=== PATIENT | male | born 1955 | race Caucasian/White ===

== ENCOUNTER → 2016-04-10 | Outpatient (CLI) | payer BC, OTHER ==
[~2016-04-10] MED LIST: ALLEGRA ALLERG180 MG PO; ALTACE10 M1 PO; AMBIEN CR12.5 MG PO; AMLODIPINE BESY10 MG PO; AMOXICILLIN 50500 M1; AMOXIL PO; ASA5UEC PO; ASPIRIN EC325 M1 PO; ASPIRIN325 PO; AUGMENTIN 875875 MG PO; CARVEDILOL25 MG PO; CENTRUM SILVER1 EAC2 PO; CITRATE OF MAG296 ML PO; CLAV PO; CLOTRIMAZOLE-BE15 GM TP; COLACE100 MG PO; COREG6.25 MG PO; COZAAR 50 MG TA50 M2 PO; DEXAMETHASONE 44 M1 PO; DILAUDID 2 MG TA2 MG PO; DIPHENHIST50 MG PO; DUONEB 2.5-0.5 M3 ML INH; FENTANYL PA25 MCG/HR TRANSDERM; GUAIFENESIN/COD10 M1 PO; HUMALOG100 UNIT/1; HUMALOG100 UNIT/2; HYDROCHLOROTH12.5 M1 PO; HYDROCHLOROTH12.5 MG PO; HYDROCODONE-CH473 M1 PO; HYDROCODONE-CH473 ML PO; HYDROCODONE-CHLO5 ML PO; KEFLEX500 MG PO; LEVAQUIN 500 M500 M2 PO; LYRICA 75 MG CA75 MG PO; MIRALAX17 GM PO; MUCINEX600 MG PO; NIASPAN 500 MG500 M1 PO; OMEPRAZOLE 20 M20 M1 PO; OXYCODONE HCL15 MG PO; PACERONE 200 M200 M1 PO; PEMETREXED IV; PREDNISONE 10 M10 MG PO; REGLAN 5 MG TAB5 MG PO; REMERON15 MG PO; RESTORIL15 MG PO; SIMVASTATIN20 MG PO; SSD CREAM 1% 5050 GM TOP; TESSALON PERLE100 M1 PO; TESSALON PERLE100 MG PO; TOPROL XL25 MG PO; VITAMIN C1000 MG PO; ZETIA10 MG PO; ZOCOR 20 MG TAB20 M1 PO; ZOLPIDEM TART12.5 MG PO
== END ==
LOC: RAD 13:16
DX: C34.90 Malignant neoplasm of unspecified part of unspecified bronchus or lung (principal); J90 Pleural effusion, not elsewhere classified

== ENCOUNTER 2016-04-19 06:55 | Inpatient (IN) | payer BC, OTHER ==
[~2016-04-19] VITALS: Ht 185.4 cm; Wt 0.5 kg
--- NOTE | ~2016-04-19 | HC ---
[facility] [place] [address] CONSULTATION Name: LINDAASHLEYMELAINE Room #: 426-P [facility] IN M.R.#: [id number] Admission: 04/19/16 Attend Phys: Ezekiel Mobley MD Discharge: Date of : 53 Report #: [id number] THIS REPORT FOR: //name// CC: Ishaan Mobley HISTORY OF PRESENT ILLNESS: The patient is a 61-year-old male with a history of metastatic lung cancer who has had anemia as well as a history of GI bleed. He underwent workup in February, which included an EGD and colonoscopy by my partner Dr. Raza, both of which were negative. Biopsies at that time were negative for celiac sprue as well. He then underwent an M2 capsule endoscopy. This was read by Dr. Banda and she noted a jejunal mass that was ulcerated with ulcerations proximal to the mass as well. Etiology was uncertain. She attempted a small bowel enteroscopy to reach the mass, but was unable to reach that area. This was performed on 03/13/2016. Therefore, the plan was to have the patient undergo a double balloon enteroscopy, which is actually scheduled for April 29 at [facility] [place]. The patient was admitted because he has recurrent nausea and vomiting. He states this has been ongoing for the last week on a daily basis. It almost always occurs at night, nausea is not a big component. He states he begins coughing significantly, which leads to vomiting. His last dose of chemotherapy was a week ago. His last blood transfusion was yesterday in which he had 2 units of packed cells. His hemoglobin at this time is 11.0; however, his white blood cell count is 0.8. It is unclear if he has received stimulating factor for his leukopenia. He denies any fevers or chills. He had a bowel movement yesterday that was small. He denies any flatus today. He has been feeling weak in general. No chest pain or shortness of breath, no significant early satiety, but his appetite has been fairly poor. PAST MEDICAL HISTORY: Metastatic lung cancer, history of jejunal mass, anemia, GI bleed. Diabetes, history of coronary artery disease, hypertension, peripheral vascular disease, atrial fibrillation, he has had a previous CABG with stent placement in 2003. FAMILY HISTORY: Negative for colon cancer. SOCIAL HISTORY: He denies any tobacco or alcohol at this time. PHYSICAL EXAMINATION: VITAL SIGNS: Temperature is 97.8, pulse 65, blood pressure 99/49, respiratory rate is 18. GENERAL: He is alert and oriented x 3 in no acute distress. HEENT: Sclerae nonicteric. Oropharynx clear. NECK: Supple. CARDIOVASCULAR: Regular rate. CHEST: Faint crackles on the right, slight decreased breath sounds. [facility] [address] [place] [address] CONSULTATION Name: MELANIE STONE Room #: 426-P [facility] IN [facility].#: [id number] Admission: 04/19/16 Attend Phys: Ezekiel Mobley MD Discharge: Date of : 53 Report #: [id number] ABDOMEN: Soft. He is nontender, nondistended, normoactive bowel sounds. EXTREMITIES: No cyanosis, clubbing or edema. LABORATORY DATA: Sodium 138, potassium 3.5, chloride 98, bicarbonate 29, BUN 30, creatinine 1.5, glucose 279, AST 31, lipase 27, total bilirubin 0.7, calcium 8.4, alkaline phosphatase 208, ALT is 22, albumin 1.9. WBC is 0.8, hemoglobin 11.0, platelet count is 150. KUB performed today bowel gas pattern nonspecific, no evidence of mechanical obstruction, constipation noted. ASSESSMENT AND PLAN: 1. Recurrent nausea and vomiting, this typically occurs only at night. The patient has been undergoing chemotherapy. However, there has been no pattern with nausea and vomiting with previous chemotherapy. He has a known mass within the jejunum, although this may cause a partial blockage if it is enlarged since last hospitalization he did have a small bowel follow through that was in February that was essentially normal and he is not having persistent symptoms during the day, suggesting a small-bowel obstruction as well as his KUB showing no dilated loops of small bowel. The patient does have a history of diabetes; need to consider the possibility of delayed gastric emptying. We discussed starting Zofran on a scheduled basis every evening as the patient has been only having vomiting at night. If this is not helpful, then would consider a trial of Reglan and may need to consider either repeat CT or small bowel follow through in the near future. 2. Significant leukopenia likely secondary to chemotherapy, would need to continue to monitor closely. 3. History of significant anemia with known ulceration of small bowel mass, which could be contributing as well as other fractures, hemoglobin has been monitored closely lately, his last transfusion was yesterday. Thank you for allowing me to participate in his care. <ELECTRONICALLY SIGNED> By: Hayden Crum MD 04/20/16 1107 1515 1617 Hayden Crum MD /nt
--- NOTE | ~2016-04-19 | D ---
[facility] [place] [address] DISCHARGE SUMMARY Name: MELANIE STONE Room #: 426-P [facility] IN M.R.#: [id number] Admission: 04/19/16 Attend Phys: Ezekiel Mobley MD Discharge: 04/24/16 Date of : 53 Report #: [id number] THIS REPORT FOR: //name// CC: Ezekiel Mobley DATE OF SERVICE: 04/24/2016 DISCHARGE DIAGNOSES: 1. Nausea and vomiting secondary to gastroparesis, multifactorial including diabetic gastroenteropathy and the administration of narcotic agents for cough. 2. Constipation. 3. Severe protein calorie malnutrition. 4. New 5 cm mass seen in the liver on CT scan consistent with metastatic disease. 5. Old-traumatic fractures of the left acetabulum that are unchanged. 6. Stage 4 nonsmall cell lung cancer on maintenance Alimta chemotherapy. 7. 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 8. Thrombocytopenia due to chemotherapy. 9. Type 1 diabetes mellitus, well managed by the patient himself with an insulin pump - blood sugars have dropped as the corticosteroids have been cut back in dose. 10. Chronic constipation from narcotics and his diabetic enteropathy. 11. Small scrotal ulcer that has improved since last seen in the office. SUMMARY OF HISTORY AND PHYSICAL: The patient came to the emergency room because of persistent nausea and vomiting that had gone on in the night time for the previous week or more. Because his symptoms were not responding to oral medication, hospital admission with intravenous fluids, intravenous medications, and GI consultation as well as consultation with his oncologist for his stage 4 lung cancer were all indications for in-hospital admission. SUMMARY OF HOSPITAL COURSE: He was given metoclopramide 5 mg before meals and at bedtime along with Zofran at bedtime and his nausea and vomiting resolved. He was also given lactulose, which was effective in treating his constipation. MiraLax was administered as well. He was given pantoprazole twice daily also. His hemoglobin remained stable suggesting that he was not bleeding acutely from known tumor in his proximal jejunum. His platelets were low and with stable hemoglobin, had suggested that his current platelets were highly functional. Dr. Petit, his oncologist, ordered platelet transfusion prior to him being discharged. LABORATORY DATA: His creatinine on admission was 1.5 with an EGFR of 47, which is at his current baseline. He managed his blood sugars with his insulin pump while in the hospital and they varied between 31 when he came through the emergency room to a maximum of 406 in response to corticosteroids, but were between 50 and 127 his last 3 hospital days. Alkaline phosphatase was 208 and [facility] [address] [place] [address] DISCHARGE SUMMARY Name: MELANIE STONE Room #: 426-P [facility] IN .R.#: [id number] Admission: 04/19/16 Attend Phys: Ezekiel Mobley MD Discharge: 04/24/16 Date of : 53 Report #: [id number] had been in this range recently. Albumin was in the severe malnutrition range at 1.9. White blood cells on admission were low at 0.8, hemoglobin was 11.0 and stabilized at 9.3 after rehydration; platelets were 150,000 on admission but dropped to 16,000 on the day of discharge, and he was transfused with platelets before being discharged. Urinalysis was negative. Blood cultures were negative. Video swallow was unremarkable. CT scan of the chest, abdomen and pelvis showed likely post-traumatic healed fractures in the posterior left acetabulum and were unchanged from 11/2015. An old healed right inferior pubic ramus fracture. Thickening in the mid portion of small bowel with possible inflammation/transient intussusception was not present on a previous study. A new 5.5 cm mass in the right lobe of the liver with irregular margins consistent with hepatic metastasis; moderate right pleural effusion, unchanged from 12/17/2015. Bronchial thickening and atelectasis in the right upper, right middle and right lower lobes, unchanged from 12/17/2015. Asymmetric thickening of the bladder wall was felt to be interstitial inflammation or infection, possibly invasive tumor or post-therapeutic. PLAN: The patient currently has an appointment for double balloon enteroscopy at [facility] on April 29 for biopsy and treatment of the proximal jejunal mass seen on capsule endoscopy several weeks ago. He is discharged on metoclopramide 5 mg before meals and at bedtime, Zofran as needed, and twice daily proton pump inhibitors. His other medications are listed on his discharge instruction sheet. He will be seen in my office in 2-4 weeks and followed closely by his oncologist, Dr. Ishaan Petit. <ELECTRONICALLY SIGNED> By: Ezekiel Mobley MD 06/09/16 0826 2144 0238 Ezekiel Mobley MD /nt
--- NOTE | ~2016-04-19 | S ---
[facility] [place] [address] SURGICAL PATH RPT PROCEDURE Name: MELANIE STONE Room #: 426-P ADM IN M.R.#: [id number] Admission: 04/19/16 Date of : 53 Discharge: Report #: [id number] Path Case #: [id number] PATHOLOGY REPORT COLLECTION DATE: 04/23/2016 RECEIVED DATE: 04/23/2016 SUBMITTING PHYS: Dr. Ishaan Petit OTHER PHYS: Dr. Ezekiel Harden SPECIMEN(S) RECEIVED: A.Peripheral smear * * * * * * * * * * * * FINAL DIAGNOSIS: Peripheral blood smear: - Moderate normocytic anemia, lymphopenia / borderline mild neutrophilia and severe thrombocytopenia. (see comment) COMMENT: Overall the peripheral blood has moderate normocytic anemia, lymphopenia (with a corresponding borderline mild neutrophilia) and severe thrombocytopenia. The WBC count is within the normal reference range. The etiology of the findings is unclear based entirely on slide review. Hypersegmented neutrophils are also noted. It is likely related to the patient's underlying medical condition. Potential causes of normocytic anemia include anemia of chronic disease, treated and/or compensated vitamin and mineral deficiencies, acute blood loss and dilutional. Potential causes of thrombocytopenia include immune and non-immune platelet destruction, drug and/or toxic exposures, dilutional and primary bone marrow disorders. Correlation with clinical history and additional laboratory data is recommended. The case is discussed with Dr. Ishaan Petit on 04/23/2016 at approximately 10 AM. (CLW:all; d/t: 04/23/2016) PATHOLOGIST: Elena Weber M.D. REPORT ELECTRONICALLY SIGNED BY: Elena Weber M.D. DATE/TIME: 04/23/2016 13:15 * * * * * * * * * * * * MICROSCOPIC DESCRIPTION: CBC Data (04/23/16): WBC 9K/uL, RBC 2.99, Hgb 9.2 g/dL, Hct 27.8%, MCV 92.9 fl, MCH 30.7 pg, MCHC 33.1 g/dL, RDW 16.1%, and platelet count 25 K/uL. Manual [facility] [place] [address] SURGICAL PATH RPT PROCEDURE Name: MELANIE STONE Room #: 426-P ADM IN .R.#: [id number] Admission: 04/19/16 Date of : 53 Discharge: Report #: [id number] Path Case #: [id number] white blood cell differential: segs 93%, bands 2%, lymphs 2%, monos 3%. Peripheral Blood Smear: Cytomorphological examination of the Mathew's stained peripheral blood smear confirms the provided data. Red blood cells show moderate normocytic anemia with mild anisocytosis. No significant poikilocytosis is identified. No schistocytes or microspherocytes are seen. White blood cells are predominantly segmented neutrophils and are without significant dyspoiesis or significant left shift. Occasional hypersegmented neutrophils are noted. Lymphocytes are predominantly small, round and mature appearing with condensed chromatin and scant cytoplasm. On scanning, no markedly atypical lymphoid cells are seen. Monocytes are mature. Platelets are markedly decreased in number and mainly normal in morphology with rare larger platelets noted. CLINICAL HISTORY: 61-year-old man with anemia and thrombocytopenia. Currently on chemotherapy. Morphologic review of the peripheral blood smear is requested by the patient's physician. INITIAL CPT CODE(S): A; [place] Professional services performed by [employer] at [facility] [address], [place] [address] Technical services performed by [employer] at [address] [place] [address], [address], [place] [address]. [employer] [facility] [place] [address] PHONE: [phone] DIRECTOR: Malachi Foley M.D. * * * END OF REPORT * * *
--- NOTE | ~2016-04-19 | HC ---
[place] [address] CONSULTATION Name: LINDAASHLEYMELANIE Room #: 426-P ADM IN M.R.#: [id number] Admission: 04/19/16 Attend Phys: Ezekiel Mobley MD Discharge: Date of : 53 Report #: [id number] THIS REPORT FOR: //name// CC: Mack Mobley MD DATE OF SERVICE: 04/21/2016 REASON FOR CONSULTATION: History of metastatic lung cancer. HISTORY OF PRESENT ILLNESS: The patient is a very pleasant 61-year-old gentleman with a history of adenocarcinoma from the lung from 10/27/2014. This was a poorly differentiated carcinoma that was EGFR, ALK and ROS-1 negative. The patient completed radiation therapy to the pelvis in November 2014. The patient was recently admitted because of fatigue, falling at home and also vomiting. The patient gives a history that he has a chronic cough which he has indeed had in the clinic. He since coughs at night and was aware that there were some stomach contents in his throat that he throws up. He does not really have nausea, just has emesis. There is also a question about whether he may be aspirating. He also had some mild renal insufficiency when he came in. He has been evaluated for this by GI. They are planning something about small bowel follow-through or other GI studies. Note that as part of his workup for anemia earlier, he even found to have some type of abnormality in the small intestine and is planned for a double enteroscopy of the small bowel at [facility] next week. The patient denies fevers or chills; does have the cough, has been working full-time. He had sort of a trip coming down the stairs at home prior to admission. No new arm or leg swelling. Bowels have been moving okay, though they are sometimes fast and sometimes slow. He had been also having trouble with anemia lately and recently begun on darbepoetin. PAST MEDICAL HISTORY: Notable for the [id number] lung cancer diagnosed from approximately October 2014. In the past, had been on radiation therapy, then was on carbo and Gemzar and then has been on more of a maintenance Alimta since May 2015. Note that he could have therapies with PD-1 inhibitors. His most recent chemo was cycle 13 on April 10. He also has anemia, had had iron deficiency and had received INFeD within the last 6-8 weeks. He was found to have a small bowel bleeding and was told to have a procedure to stop this. He also began on darbepoetin 300 mcg q. 21 days on approximately 03/27/2016. He also had a history of left hip pain. He had been on radiation therapy for that in the past. Diabetes mellitus type 2. He has been on insulin and oral agents. Coronary artery disease. He has a history of bypass in the past. Also has a history of hypertension. [address] [address] CONSULTATION Name: MELANIE STONE Room #: 426-P [facility] IN M.R.#: [id number] Admission: 04/19/16 Attend Phys: Ezekiel Mobley MD Discharge: Date of : 53 Report #: [id number] SOCIAL HISTORY: He is . He still works for a [employer] company in a large [employer]. He smoked in the past. No recent alcohol or smoking history. Has a very supportive family. MEDICATIONS: At this time in the hospital currently include metoclopramide 5 mg a.c. and at bedtime, pregabalin 75 mg daily, multivitamins with minerals daily, vitamin C 1000 mg daily, amiodarone 200 mg daily, enteric-coated aspirin 325 mg daily, Zofran p.r.n., methylprednisolone 40 mg IV q.i.d., sliding scale insulin, pantoprazole 20 b.i.d., carvedilol 6.25 b.i.d., MiraLax 17 g daily, hydrocodone cough syrup 2.5 mL b.i.d., ipratropium and albuterol respiratory therapy q.i.d., silver sulfadiazine to skin tear, cephalexin 500 mg q. 6 hours for recent cellulitis, benzonatate 100 mg q. 6 hours, bisacodyl p.r.n. and zolpidem 5 mg at bedtime p.r.n. LABORATORY DATA: Here includes a creatinine on admission of 1.5. Liver functions recently include a total bilirubin of 0.7, AST 31, alkaline phosphatase 208. Albumin 1.9. Calcium has been 8.4. Coags done in January were unremarkable. Recent white count had been low, was up to 1.2 today. Hemoglobin 11.0 on admission, 9.2 recently; note that he had a recent transfusion. Platelets 73; back in February, had been 541. PHYSICAL EXAMINATION: GENERAL: The patient appears his stated age. VITAL SIGNS: Recent height is 6 feet 1 inches or 185.4 cm, 181 pounds or 82 kg. Blood pressure is 113/50, O2 sat 96, respirations 16, pulse 68 and temperature 97.9. NEUROLOGIC: The patient is alert and moving all extremities. He does have some slight facial flushing and puffiness. LUNGS: Have some soft rhonchi in the lower bases, a little bit more on the left. HEART: Regular rate. ABDOMEN: Slightly obese. No masses, nontender. EXTREMITIES: Without clubbing or cyanosis. There is some trace edema. ASSESSMENT AND PLAN: 1. Mpb-[id number]-[id number] lung cancer, recently on Alimta ____ order one and get one sent over ____ from for comparison. 2. Anemia status post recent INFeD, now on darbepoetin. Also, has possibly small bowel gastrointestinal bleed. Awaiting small bowel double enteroscopy at [facility]. GI following. 3. Nocturnal vomiting and also cough, studies per GI. No trial of steroids to help decrease mucus production. Also continue other cough suppressants. 4. Recent neutropenia and thrombocytopenia, maybe be viral mediated. We will watch his counts; had not been that low as an outpatient. 5. Coronary artery disease and status post coronary artery bypass graft in the past. No recent cardiac issues. [address] [place] [address] CONSULTATION Name: MELANIE STONE Room #: 426-P [facility] IN [facility]#: [id number] Admission: 04/19/16 Attend Phys: Ezekiel Mobley MD Discharge: Date of : 53 Report #: [id number] 6. Hypertension. Medications as needed. 7. Type 2 diabetes. Monitoring and meds as needed per others. 8. Vomiting at night. Again, GI evaluation per others. 9. Neuropathy. Continues pregabalin. 10. Recent tachycardia, on amiodarone per cardiology and also carvedilol. We will follow with you. <ELECTRONICALLY SIGNED> By: Ishaan Petit MD 04/22/16 0725 0849 1102 Ishaan Petit MD /nt
--- NOTE | ~2016-04-19 | EKG ---
[place] [address] [facility] [employer] [address] ELECTROCARDIOGRAM REPORT Name: LINDAASHLEYMELANIE Room #: 426-P ADM IN M.R.#: [id number] Admission: 04/19/16 Attend Phys: Ezekiel Mobley MD Discharge: Date of : 53 Report #: [id number] THIS REPORT FOR: //name// [facility] Test Date: 2016-04-22 Test Time: 15:35:25 Pat Name: MELANIE STONE Department: Room: 426 Gender: M Electronics Inspector: Amairani HANSON : 1955 Requested By: Anne Felipe Order Number: [id number] MD: Robert Chiang Measurements Intervals [place] Rate: 71 P: 57 NC: 178 QRS: 25 QRSD: 86 T: 53 QT: 437 QTc: 475 Interpretive Statements Sinus rhythm Ventricular premature complex Poor R wave progression No previous ECGs available for comparison Electronically Signed On 04-23-2016 7:54:09 [employer] by Robert Chiang [email or web address] <ELECTRONICALLY SIGNED> By: Robert Chiang MD, [facility] 04/23/16 0754 1535 1535 Robert Chiang MD, FACC /EPI
--- NOTE | ~2016-04-19 | H ---
[facility] [address] HISTORY AND PHYSICAL Name: MELANIE STONE Richard Room #: 426-P ADM IN M.R.#: [id number] Admission: 04/19/16 Attend Phys: Ezekiel Mobley MD Discharge: Date of : 53 Report #: [id number] THIS REPORT FOR: //name// CC: Hayden Mobley MD DATE OF SERVICE: 04/19/2016 HISTORY OF PRESENT ILLNESS: The patient is a 61-year-old white male who presents to the Emergency Room with complaints of nausea and vomiting. This has been going on at nights for the last week at least. He saw Dr. Mobley at the office in the last couple of days and is also being treated for an epididymitis with Keflex. The patient denies any pain. He says that he is not using any narcotic pain medicines recently. His last bowel movement was on the morning of admission, prior to that it was 2 days before. He reports that his bowel movements were somewhat smaller than usual lately, but with about the same regularity. His appetite has been off a little bit. He had 2 pack blood cell transfusions the day prior to this admission. He has had recurrent anemia problems due to a small intestinal mass that is being worked up right now. Please refer to the ER note with regards to the double balloon procedure. This will be performed at [facility] as an outpatient. The patient was not sure of the name of the distribution collection operator whom he thought will be performing the procedure. He follows up with Dr. Ishaan Petit for his chemotherapy. It is noteworthy that the Emergency Room has already been in contact with Dr. Hayden Crum to see the patient as well. His past medical history includes stage IV nonsmall cell lung cancer for which he is currently on Alimta maintenance chemotherapy. He has previously had radiation and more intensive chemotherapy in the past. Transfusions were as mentioned above. He also has a history of type 1 diabetes mellitus for about 50 years and he managed it with an insulin pump. He has had cellulitis in both lower extremities several years ago. He shattered his pelvis in 1998 in a fall from his home where he was trying to do some work on the roof. He has coronary artery disease and had 3-vessel bypass in 2001 and subsequently a stent in 2003. He does have high blood pressure. CURRENT MEDICATIONS: Include, 1. Hydrocodone chlorpheniramine suspension (narcotic?) a teaspoon every 4 hours as needed for cough. 2. Carvedilol 6.25 mg by mouth twice daily. 3. Amiodarone 200 mg by mouth daily. 4. Hydrochlorothiazide 12.5 mg by mouth daily. 5. Cephalexin 500 mg by mouth 4 times daily. 6. Silver sulfadiazine topically to the affected scrotal area. 7. Vitamin C 1000 mg by mouth daily. [address] [address] HISTORY AND PHYSICAL Name: MELANIE STONE Room #: 426-P [facility] IN ..#: [id number] Admission: 04/19/16 Attend Phys: Ezekiel Mobley MD Discharge: Date of : 53 Report #: [id number] 8. Tessalon Perles 100 mg by mouth every 8 hours p.r.n. cough. 9. Dexamethasone 4 mg by mouth twice daily. 10. Guaifenesin 600 mg p.o. q. 12 hours p.r.n. cough. 11. Multivitamins with minerals. 12. Omeprazole. 13. Lyrica daily. 14. Zolpidem CR at bedtime p.r.n. insomnia. 15. Janice. 16. Benadryl p.r.n. 17. An optional round of levofloxacin 18. Dilaudid p.r.n. 19. Fentanyl patch 25 mcg which the patient denies that he is using at the present time. 20. Aspirin 325 mg by mouth daily. ALLERGIES: He has no known drug allergies. SOCIAL HISTORY: He is and not retired. 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 He smoked in the past. He does not have any extensive history of substance abuse, otherwise. REVIEW OF SYSTEMS: He has generalized malaise. He has a very debilitating cough. He has no chest pain, no shortness of breath, no abdominal pain, although he has noted that an umbilical hernia has developed in the last year with all the coughing. No problems with falls or swelling, but he does have discomfort in the scrotum. He does also tell me that frequently because he has been so sick for the last year, historical details regarding his illnesses or his medications escape him. PHYSICAL EXAMINATION: VITAL SIGNS: In the Emergency Room showed respirations of 20, pulse of 117, temperature of 36.9 degrees Celsius, and blood pressure 132/75. His oxygen saturation 93% on room air on arrival. Self reported weight was 181 pounds on arrival. GENERAL: The patient is a pleasant middle-aged white male who looks somewhat older than his stated age. He has a rather severe cough that punctuates our conversation with paroxysms at least every couple of minutes if not more frequent than that. HEENT: Eyes are slightly sunken, but nonicteric, not injected. Sinuses nontender. Oropharynx is slightly dry and pink. No lesions, no exudates. NECK: Without adenopathy or thyromegaly or mass. LUNGS: Surprisingly clear sounding on exam today. CARDIOVASCULAR: Reveals a distant, but regular rhythm (he has a known history of atrial fibrillation that I neglected to mention above in his past medical history). [facility] [address] [place] [address] HISTORY AND PHYSICAL Name: BERTHAMELANIE Room #: 426-P [facility] IN [facility].#: [id number] Admission: 04/19/16 Attend Phys: Ezekiel Mobley MD Discharge: Date of : 53 Report #: [id number] ABDOMEN: Soft. Ventral umbilical hernia is noted. No tenderness. No visceromegaly, otherwise. Please note that the left side of the pelvic bones are much more prominent than the right side and this likely reflects the prior crush injury. EXTREMITIES: Without cyanosis or clubbing or peripheral edema. Peripheral pulses are easily palpated in all 4 distal extremities. MENTAL STATUS EXAM: The patient is alert. He is oriented to person, place and time. There are no hallucinations or delusions. His short term memory is better than he thinks. His long-term memory appears pretty good. In providing history for his current illness, his 2 sons were present and any information they were unable to provide, they were able to text their mother at home to get the rest of the story from her. I believe she was up all night and stayed home to get some rest after the patient was admitted. The patient was noted to have a glucose on arrival of 31. This was addressed and came up subsequently on serial Accu-Cheks. LABORATORY DATA: CBC shows a white count of 0.8 with a differential of 54% segs, 24% lymphs, 18% monocytes, 4% eosinophils and the absolute neutrophil count is . The patient also shows 2+ anisocytosis of the red cells with a hemoglobin of 11, hematocrit of 33.2, MCV of 91.8, RDW of 15.8 (status post recent transfusion of 2 units packed red blood cells) and his platelet count was 150,000. The comprehensive metabolic panel showed a sodium of 138, potassium of 3.5, chloride of 98, bicarbonate of 29. BUN of 30, creatinine of 1.5. Anion gap is 11. Glucose was 41. AST was 31, ALT was 22, alkaline phosphatase was elevated at 208, total bilirubin was 0.7. Lipase level was obtained at 27. Total protein was 7.2 and normal, but the albumin was significantly depressed at 1.9. The estimated GFR parameters was 47. The patient had a single view of the abdomen by x-ray in the Emergency Room. This merely revealed constipation. There was no evidence of renal stones or any evidence of obstruction. The osseous structures were felt to be unremarkable. On my review of the x-ray, it looked fairly obvious that there were some significant injuries in the right pelvis area, especially in the area of the acetabulum. Later after admission, the chest x-ray was also obtained at my request and showed no significant change from recent baseline film of April 10 of this year. The appearances of a mass-like opacities in the right perihilar region right lung volume loss with blunting of the right costophrenic angle and a stable opacity within the peripheral right mid thorax, which was felt possibly to reflect loculated pleural fluid versus scarring. Note is also made of a prior median sternotomy from coronary bypass surgery. ASSESSMENT AND PLAN: 1. Intractable nausea and vomiting. I agree with GI consult and antiemetic therapies. The patient did have a CT scan of the head without contrast in February 2016 and this showed stable moderate white matter ischemic changes, but no evidence of mass effect or intracranial hemorrhage or shift or subdural fluid or cerebellar abnormalities. Mild ethmoid mucosal thickening was noted. [facility] [place] [address] HISTORY AND PHYSICAL Name: MELANIE STONE Richard Room #: 426-P ADM IN M.R.#: [id number] Admission: 04/19/16 Attend Phys: Ezekiel Mobley MD Discharge: Date of : 53 Report #: [id number] bowel series from February showed absence of any small bowel mass lesions (the patient noted with findings, however, were positive for a mass during a recent capsule endoscopy). Please note that the patient has had thoracentesis above 4000 mL of pleural fluid in the last couple of months. I suspect the most likely cause of the vomiting is reflux. The patient is already on an antireflux therapy. We will have him drink thickened liquids and have a swallowing study evaluation done to make sure he is not aspirating when he swallows. However, it appears more likely that if he is aspirating, it would be from regurgitation or emesis rather than the other way around. 2. Chronic atrial fibrillation, being treated with amiodarone. The amiodarone can cause pulmonary toxicity and I will be requesting a pulmonary consult during this hospital stay to consider this matter further. I will also get immunoglobulin E level to see if there is any evidence of allergic reaction going on that had been causing this. 3. Coronary artery disease, no evidence of worse symptoms at this time. 4. Hypertension. We will monitor and treat accordingly. 5. Stage IV lung cancer as described before. 6. Small bowel mass with bleeding and subsequent recurrent anemia. GI workup is in progress. I am quite certain we will be discussing consultation with Dr. Petit regarding any other therapeutic options that could be pursued for this matter. 7. Type 1 diabetes mellitus with serial Accu-Cheks and careful attention to his diet in terms of what he keep down and what he cannot keep down as well as careful attention to the amount of insulin being provided by his pump. <ELECTRONICALLY SIGNED> By: Tal Goss MD 04/20/16 [id number] Tal Goss MD /nt
[2016-04-19 06:55] VITALS: BP 132/75
[~2016-04-19 06:55] MED LIST changes: -ASPIRIN325 PO; -CITRATE OF MAG296 ML PO; -COLACE100 MG PO; -GUAIFENESIN/COD10 M1 PO; -MIRALAX17 GM PO; -PREDNISONE 10 M10 MG PO; -REGLAN 5 MG TAB5 MG PO; -SSD CREAM 1% 5050 GM TOP; -TESSALON PERLE100 MG PO
[2016-04-19 07:24] LABS: HEMATOCRIT 33.2 % (42.0-52.0); MCH 30.3 pg (26.0-34.0); MCHC 33.1 % (28.0-37.0); MCV 91.8 fL (80.0-100.0); PLATELET COUNT 150 thou/uL (150-400); RBC 3.61 mil/uL (4.50-6.00); RDW 15.8 % (10.5-14.5)
[2016-04-19 07:27] LABS: MANUAL DIFF YES
[2016-04-19 07:32] LABS: WBC 0.8 thou/uL (4.0-11.0)
[2016-04-19] MEDS ORDERED: KEFLEX500 MG PO (07:39)
[2016-04-19] MEDS ORDERED: SSD CREAM 1% 5050 GM TOP (07:40)
[2016-04-19 07:58] LABS: CALCIUM 8.4 mg/dL (8.5-10.1); CREATININE 1.5 mg/dL (0.6-1.3); POTASSIUM 3.5 mmol/L (3.5-5.1)
[2016-04-19 08:02] LABS: ALBUMIN 1.9 g/dL (3.4-5.0); TOTAL BILIRUBIN 0.7 mg/dL (<0.1-1.0); TOTAL PROTEIN 7.5 g/dL (6.4-8.2)
[2016-04-19 08:04] LABS: ABSOLUTE NEUTROPHILS 0.4 thou/uL (1.4-8.2); TOTAL CELL COUNT 50
[2016-04-19 08:05] LABS: ANISOCYTOSIS 2+
[2016-04-19 09:49] VITALS: BP 112/56
[2016-04-19 10:10] VITALS: BP 99/49
[2016-04-19 16:31] VITALS: BP 112/52
[2016-04-19 20:00] VITALS: BP 110/42
[2016-04-20 04:00] VITALS: BP 111/55
[2016-04-20 04:55] LABS: RBC 2.99 mil/uL (4.50-6.00)
[2016-04-20 04:57] LABS: HEMATOCRIT 27.6 % (42.0-52.0); HEMOGLOBIN 9.2 gm/dL (14.0-18.0); MCH 30.8 pg (26.0-34.0); MCHC 33.3 % (28.0-37.0); MCV 92.5 fL (80.0-100.0); RDW 15.9 % (10.5-14.5)
[2016-04-20 05:01] LABS: MANUAL DIFF YES; WBC 1.2 thou/uL (4.0-11.0)
[2016-04-20 05:10] LABS: CALCIUM 7.8 mg/dL (8.5-10.1); CREATININE 1.5 mg/dL (0.6-1.3); POTASSIUM 3.8 mmol/L (3.5-5.1)
[2016-04-20 06:02] LABS: NUCLEATED RBCS 1 /100WBC; PLATELET COUNT 73 thou/uL (150-400); TOTAL CELL COUNT 100
[2016-04-20 06:03] LABS: ANISOCYTOSIS 1+; LARGE PLATELETS FEW; PLATELET ESTIMATE DECREASED
[2016-04-20 07:50] VITALS: BP 106/53
[2016-04-20 15:43] VITALS: BP 101/49
[2016-04-20 20:00] VITALS: BP 93/48
[2016-04-21 04:00] VITALS: BP 106/64; BP 109/57
[2016-04-21 04:42] LABS: URINE BILIRUBIN NEGATIVE (Negative); URINE BLOOD NEGATIVE (Negative); URINE COLOR YELLOW; URINE GLUCOSE-RANDOM* TRACE (Negative); URINE KETONES NEGATIVE (Negative); URINE LEUKOCYTES-REFLEX NEGATIVE (Negative); URINE PROTEIN (DIPSTICK) NEGATIVE (Negative); URINE SPECIFIC GRAVITY 1.015 (1.003-1.035); URINE UROBILINOGEN 0.2 E.U./dl (0.2-1.0)
[2016-04-21 07:29] VITALS: BP 113/58
[2016-04-21 10:19] VITALS: BP 126/53
[2016-04-21 10:19] LABS: CREATININE 1.6 mg/dL (0.6-1.3); POTASSIUM 4.1 mmol/L (3.5-5.1)
[2016-04-21 10:20] VITALS: BP 125/75
[2016-04-21 16:33] VITALS: BP 117/46
[2016-04-21 20:00] VITALS: BP 124/62
[2016-04-22 04:43] VITALS: BP 115/52
[2016-04-22 06:19] LABS: HEMATOCRIT 27.3 % (42.0-52.0); MCH 30.8 pg (26.0-34.0); MCHC 33.2 % (28.0-37.0); MCV 92.7 fL (80.0-100.0); RBC 2.94 mil/uL (4.50-6.00); RDW 15.8 % (10.5-14.5)
[2016-04-22 06:23] LABS: MANUAL DIFF YES
[2016-04-22 06:36] LABS: CREATININE 1.4 mg/dL (0.6-1.3); POTASSIUM 4.3 mmol/L (3.5-5.1)
[2016-04-22 07:40] VITALS: BP 115/61
[2016-04-22 10:51] LABS: ABSOLUTE NEUTROPHILS 7.3 thou/uL (1.4-8.2); ATYPICAL LYMPHS 1 %; TOTAL CELL COUNT 100
[2016-04-22 11:00] LABS: ANISOCYTOSIS SLIGHT; POIKILOCYTOSIS SLIGHT
[2016-04-22 11:01] LABS: PLATELET ESTIMATE DECREASED
[2016-04-22 11:03] LABS: PLATELET COUNT 40 thou/uL (150-400)
[2016-04-22 16:11] VITALS: BP 115/60
[2016-04-22 20:00] VITALS: BP 120/52
[2016-04-23 04:00] VITALS: BP 118/52
[2016-04-23 06:44] LABS: HEMOGLOBIN 9.2 gm/dL (14.0-18.0); MCH 30.7 pg (26.0-34.0); MCHC 33.1 % (28.0-37.0); MCV 92.9 fL (80.0-100.0); RDW 16.1 % (10.5-14.5)
[2016-04-23 06:47] LABS: HEMATOCRIT 27.8 % (42.0-52.0); RBC 2.99 mil/uL (4.50-6.00)
[2016-04-23 06:49] LABS: MANUAL DIFF YES
[2016-04-23 06:51] LABS: PLATELET COUNT 25 thou/uL (150-400)
[2016-04-23 08:00] VITALS: BP 113/56
[2016-04-23 08:07] LABS: ABSOLUTE NEUTROPHILS 8.6 thou/uL (1.4-8.2); TOTAL CELL COUNT 100
[2016-04-23 10:52] LABS: APTT 26.7 Seconds (24.5-32.8); INR 1.1; PROTIME 11.4 Seconds (9.3-11.4)
[2016-04-23 15:41] VITALS: BP 133/67
[2016-04-23 20:00] VITALS: BP 154/95
[2016-04-24 04:30] VITALS: BP 121/53
[2016-04-24 06:50] LABS: HEMOGLOBIN 9.3 gm/dL (14.0-18.0); MCV 93.9 fL (80.0-100.0)
[2016-04-24 06:53] LABS: HEMATOCRIT 27.9 % (42.0-52.0); MCH 31.2 pg (26.0-34.0); MCHC 33.2 % (28.0-37.0); RBC 2.97 mil/uL (4.50-6.00); RDW 16.5 % (10.5-14.5); WBC 8.7 thou/uL (4.0-11.0)
[2016-04-24 06:56] LABS: MANUAL DIFF YES
[2016-04-24 07:33] LABS: ABSOLUTE NEUTROPHILS 8.2 thou/uL (1.4-8.2); TOTAL CELL COUNT 100
[2016-04-24 07:34] LABS: ANISOCYTOSIS 1+; PLATELET COUNT 16 thou/uL (150-400)
[2016-04-24 07:45] VITALS: BP 126/59
[2016-04-24 14:00] VITALS: BP 135/66; BP 141/66
[2016-04-24 15:29] VITALS: BP 119/57
[2016-04-24] MEDS ORDERED: REGLAN 5 MG TAB5 MG PO (17:35)
[2016-04-24] MEDS ORDERED: GUAIFENESIN/COD10 M1 PO (17:35)
[2016-04-24] MEDS ORDERED: MIRALAX17 GM PO (17:35)
[2016-04-24] MEDS ORDERED: PREDNISONE 10 M10 MG PO (17:56)
[2016-04-24 18:14] VITALS: BP 119/57
[2016-04-24 18:15] VITALS: BP 119/57
[2016-06-08] MEDS ORDERED: ASPIRIN325 PO (07:04)
[2016-06-08] MEDS ORDERED: TESSALON PERLE100 MG PO (07:05)
[2016-06-08] MEDS ORDERED: COLACE100 MG PO (08:37)
[2016-06-08] MEDS ORDERED: CITRATE OF MAG296 ML PO (08:37)
== END 2016-04-24 19:00 | disposition home or self-care (01) | DRG 391 ==
LOC: ER 06:55 → 4E 08:52 → EROBS 08:52 → 4E 09:50
PROVIDERS: Emergency Medicine; Internal Medicine; Internal Medicine Hematology & Oncology
PROC: 30233R1 Transfusion of Nonautologous Platelets into Peripheral Vein, Percutaneous Approach (ICD-10-PCS; principal; 2016-04-24)
DX: K31.84 Gastroparesis (principal); E43 Unspecified severe protein-calorie malnutrition; C34.90 Malignant neoplasm of unspecified part of unspecified bronchus or lung; Z68.1 Body mass index [BMI] 19.9 or less, adult; E10.649 Type 1 diabetes mellitus with hypoglycemia without coma; E10.43 Type 1 diabetes mellitus with diabetic autonomic (poly)neuropathy; E10.65 Type 1 diabetes mellitus with hyperglycemia; E10.22 Type 1 diabetes mellitus with diabetic chronic kidney disease; N18.3 Chronic kidney disease, stage 3 (moderate); D70.1 Agranulocytosis secondary to cancer chemotherapy; I12.9 Hypertensive chronic kidney disease with stage 1 through stage 4 chronic kidney disease, or unspecified chronic kidney disease; D50.9 Iron deficiency anemia, unspecified; I48.2 Chronic atrial fibrillation; I25.10 Atherosclerotic heart disease of native coronary artery without angina pectoris; N50.89 Other specified disorders of the male genital organs; K59.00 Constipation, unspecified; K63.9 Disease of intestine, unspecified; E86.0 Dehydration; I73.9 Peripheral vascular disease, unspecified; R05 Cough; K21.9 Gastro-esophageal reflux disease without esophagitis; Z96.41 Presence of insulin pump (external) (internal); Z79.899 Other long term (current) drug therapy; Z79.01 Long term (current) use of anticoagulants; Z79.4 Long term (current) use of insulin; Z95.1 Presence of aortocoronary bypass graft; Z95.5 Presence of coronary angioplasty implant and graft; Z79.82 Long term (current) use of aspirin; Z87.891 Personal history of nicotine dependence
CPT/HCPCS: 10084

== ENCOUNTER → 2016-08-14 | Outpatient (CLI) | payer BC, OTHER ==
[~2016-08-14] MED LIST changes: +ASPIRIN325 PO; +CITRATE OF MAG296 ML PO; +COLACE100 MG PO; +GUAIFENESIN/COD10 M1 PO; +MIRALAX17 GM PO; +PREDNISONE 10 M10 MG PO; +REGLAN 5 MG TAB5 MG PO; +SSD CREAM 1% 5050 GM TOP; +TESSALON PERLE100 MG PO
[2016-08-14 14:26] LABS: CREATININE 1.2 mg/dL (0.7-1.3)
== END ==
LOC: CAT 13:34
PROVIDERS: Internal Medicine
DX: D49.0 Neoplasm of unspecified behavior of digestive system (principal); R10.9 Unspecified abdominal pain

== ENCOUNTER 2017-04-21 16:27 | Inpatient (IN) | payer BC, OTHER ==
[~2017-04-21] VITALS: Ht 185.4 cm; Wt 96.2 kg
--- NOTE | ~2017-04-21 | D ---
[facility] [place] [address] DISCHARGE SUMMARY Name: MELANIE STONE Room #: 353-P [facility] IN ..#: [id number] Admission: 04/21/17 Attend Phys: Ezekiel Mobley MD Discharge: 04/24/17 Date of : 53 Report #: [id number] THIS REPORT FOR: //name// CC: Ezekiel Mobley DATE OF SERVICE: 04/24/2017 SUMMARY OF HISTORY AND PHYSICAL: The patient presented to the office with fever, vomiting and chills. His influenza nasopharyngeal test was positive for A. He was dehydrated and weak on clinical examination and required admission for further evaluation and therapy. SUMMARY OF HOSPITAL COURSE: He was admitted and started on intravenous fluids and oseltamivir. He was seen in Pulmonary Medicine consultation by Dr. Michoacano Harden, who knew him well from a previous evaluation for metastatic lung cancer and a chronic right pleural effusion. Dr. Harden felt that he had probable influenza A as well as a probable pneumonia, either influenza or other post-influenza infections and ordered appropriate antibiotics along with other laboratory evaluations. He was seen in Oncology consultation by Dr. Petit, his oncologist. His cancer treatment was reviewed. With these supportive treatments over the next several days, his volume depletion was treated as well as his pneumonia and his influenza. A CT scan of his chest without contrast showed a central right hilar mass without significant change from 07/17/2016 study. The mild right pleural effusion was slightly smaller. Patchy radiation pneumonitis in the left upper lobe and prominent right hilar adenopathy. There is a liver lesion better seen on a previous abdominal CT, 07/17/2016. DISCHARGE DIAGNOSES: 1. Acute influenza A on the office test and confirmed by the PCR test being influenza A, subtype H3. The rest of the respiratory viral panel was negative. 2. Pneumonitis on the standard plain film. 3. Type 2 diabetes, well managed with an insulin pump and continuous sugar monitor. 4. Stage IV lung cancer, stable on Opdivo immunotherapy. 5. Hypothyroid, on replacement. 6. Hyperlipidemia, on statins. 7. Coronary artery disease - stable. 8. Neuropathy, treated with pregabalin. 9. Distant history of gastrointestinal bleed and gastroparesis, responding to metoclopramide and pantoprazole. 10. Paroxysmal atrial fibrillation. [address] [address] DISCHARGE SUMMARY Name: MELANIE STONE Room #: 353-P [facility] IN [facility].#: [id number] Admission: 04/21/17 Attend Phys: Ezekiel Mobley MD Discharge: 04/24/17 Date of : 53 Report #: [id number] 11. Diabetic neuropathy. 12. Dehydration, treated with IV fluids. PLAN: The patient is to finish his 5 days of oseltamivir at home. Please see specifics in the discharge area regarding his medications. He is to come see me again in a few weeks. <ELECTRONICALLY SIGNED> By: Ezekiel Mobley MD 06/02/17 [id number] [id number] MD sammie Salvador
--- NOTE | ~2017-04-21 | H ---
[facility] [place] [address] HISTORY AND PHYSICAL Name: MELANIE STONE Room #: 353-P [facility] IN M.R.#: [id number] Admission: 04/21/17 Attend Phys: Ezekiel Mobley MD Discharge: 04/24/17 Date of : 53 Report #: [id number] THIS REPORT FOR: //name// CC: Ezekiel Mobley DATE OF SERVICE: 04/21/2017 CHIEF COMPLAINT: Fever, dehydration, acute influenza A. HISTORY OF PRESENT ILLNESS: The patient was seen in my office on 04/08/2017 and was for routine visit and was doing well. Yesterday, he became ill. He threw up last night, developed chills, fever up to 101 despite Tylenol and liquids, developed a bad cough and felt like he could hardly get out of bed. He came to my office for his influenza A, nasopharyngeal test was positive. He was dehydrated and weak on clinical exam and required admission to the hospital for further evaluation and therapy. Incidentally, he had marked reduced breath sounds on the right, he has a known lung cancer on the right and has had previous episodes of post-obstructive pneumonia in his right lung. He has also received radiation therapy to the right lung area and mediastinum as well. PAST MEDICAL HISTORY: Most recently significant for lung cancer, followed at the [facility]. It is the right lower lobe, clinically stage 4, IIB N2 M1b. He also has insulin-dependent diabetes with an insulin pump and a new monitoring device that he is doing quite well with. He has hyperlipidemia and insomnia and paroxysmal atrial fibrillation, well controlled on his current medications. He has diabetic neuropathy, also controlled on his current medications and esophageal reflux disease. CURRENT MEDICATIONS: Amiodarone 200 mg daily, vitamin C 1000 mg daily, 325 mg aspirin daily, Carvedilol 6.25 mg twice daily, hydrochlorothiazide 12.5 mg once daily, Lispro insulin by his insulin pump and followed with his continuous monitoring device. Levothyroxine 137.5 mcg daily before breakfast. Metoclopramide 5 mg 4 times daily, multiple vitamin tablet, omeprazole 20 mg daily. Pregabalin (Lyrica) 100 mg 3 times daily. Atorvastatin 40 mg at bedtime daily for hyperlipidemia and zolpidem CR 12.5 mg at bedtime as needed for sleep. He takes nivolumab (Opdivo) 240 mg IV once every month for his lung cancer. ALLERGIES: None known. PHYSICAL EXAMINATION: GENERAL: He is awake and alert and oriented, appears with his Linda. He appears pale. HEENT: His oropharynx is dry. [address] [address] HISTORY AND PHYSICAL Name: MELANIE STONE Room #: 353-P [facility] IN ..#: [id number] Admission: 04/21/17 Attend Phys: Ezekiel Mobley MD Discharge: 04/24/17 Date of : 53 Report #: [id number] NECK: Negative. CHEST: Normal. CARDIOVASCULAR: S1 and S2 are normal and the rhythm is regular. LUNGS: Markedly diminished breath sounds with a few crackles are heard in the posterior right chest, the left chest is normal. ABDOMEN: Soft and nontender, without gross hepatosplenomegaly or masses. EXTREMITIES: There is no significant edema of the lower extremities or in the ankles, and he does have some muscle atrophy. Throughout the exam, he is constantly coughing. VITAL SIGNS: His temperature during the exam was 102 orally. His blood pressure is 130/66 and his pulse was 91 and regular. He was too weak to stand on the office scales. The influenza A nasopharyngeal antigen test was positive. ASSESSMENT: 1. Acute influenza A. 2. Clinical post-obstructive pneumonia in the right lung serrano. 3. Febrile illness. 4. Lung cancer. 5. Type 1 diabetes, treated by an insulin pump. 6. Obstructive sleep apnea, on CPAP. 7. Other medical problems as mentioned above. 8. Profound weakness in addition to the dehydration. PLAN: The patient and his both agreed with urgent hospitalization. He will be admitted at [facility], intravenous fluids ordered, oseltamivir ordered, and a pulmonary medicine consultation with his parts order and stock clerk, Dr. Harden. Both he and his requested a full code blue. <ELECTRONICALLY SIGNED> By: Ezekiel Mobley MD 06/02/17 [id number] Ezekiel Mobley MD /nt
--- NOTE | ~2017-04-21 | EKG ---
[place] [address] [facility] [place] [address] ELECTROCARDIOGRAM REPORT Name: MELANIE STONE Room #: 353-P ADM IN M.R.#: [id number] Admission: 04/21/17 Attend Phys: Ezekiel Mobley MD Discharge: Date of : 53 Report #: [id number] THIS REPORT FOR: //name// [facility] Test Date: 2017-04-21 Test Time: 20:04:21 Pat Name: MELANIE STONE Department: Room: 353 P Gender: M Scaffold Worker: Amairani HANSON : 1955 Requested By: Michoacano Harden Order Number: [id number] MD: Robert Chiang Measurements Intervals [place] Rate: 77 P: 48 W[place]: 201 QRS: 38 QRSD: 87 T: 82 QT: 407 QTc: 461 Interpretive Statements Sinus rhythm Poor R wave progression Compared to ECG 04/22/2016 15:35:25 Ventricular premature complex(es) no longer present Electronically Signed On 04-22-2017 15:53:36 RN ALLERGY by Robert Chiang [email or web address] <ELECTRONICALLY SIGNED> By: Roebrt Chiang MD, [facility] 04/22/17 1553 03 03 Robert Chiang MD, FAC /EPI
--- NOTE | ~2017-04-21 | HC ---
[facility] [place] [address] CONSULTATION Name: MELANIE STONE Room #: 353-P ADM IN M.R.#: [id number] Admission: 04/21/17 Attend Phys: Ezekiel Mobley MD Discharge: Date of : 53 Report #: [id number] THIS REPORT FOR: //name// CC: Hayden Mobley MD HISTORY OF PRESENT ILLNESS: The patient is a very pleasant 62-year-old gentleman with a history of stage IV lung cancer who had sudden onset on Thursday of high fevers at 100.8 and severe myalgias and weakness. He was seen by his primary care physician yesterday, 1 test was positive and 1 was negative for influenza. He was admitted here for dehydration and weakness, and continued therapy. The patient tells me that he has not had any headache, no sore throat. Does have a little bit of coughing, but not previous to that. He does not have any nausea or any vomiting. Appetite has been decent lately. No new skin rash. No new arm or leg swelling. No blood in his urine or stool. His had had a mild viral, I think he said last week, but not very bad. He is not aware when he was specifically around him with influenza. PAST MEDICAL HISTORY: Past history is notable for the diagnosis of adenocarcinoma from 10/27/2014. The test was EGFR ALK and ROS1 negative. This was from the right lower lung. He had radiation therapy to the left hip, completed in 11/2014, then later had radiation therapy to the lung. He had carboplatin and Gemzar began in January of 2015, 6 cycles of that, he was on Alimta maintenance from about 05/2015 until 04/2016. At that time, he began the immunotherapy medicine Opdivo, and he has been on that for some time. His most recent scan was back in February and showed mostly stable disease. PAST MEDICAL HISTORY: He also has a history of postherpetic neuralgia, hypothyroidism, history of GI bleed and melena in 05/2016, history of anemia, history of diabetes mellitus type 1, history of coronary artery disease with bypass surgery in, I believe, 10/2014 but I may be not quite correct, also has a history of essential hypertension. SOCIAL HISTORY: He quit smoking about 8 years ago. He quit working within the last year. FAMILY HISTORY: No one recently diagnosed with cancer. ALLERGIES: None known. MEDICATIONS: Here in the hospital include docusate sodium 100 mg daily, aspirin 325 daily, amiodarone 200 mg daily, carvedilol 3.125 mg b.i.d., levothyroxine 100 mcg daily plus 37.5, promethazine with codeine 5 mL q.4h. p.r.n., Ambien 12.5 at bedtime, pregabalin 75 mg at bedtime, pantoprazole 40 at bedtime, [address] [address] CONSULTATION Name: MELANIE STONE Room #: 353-P [facility] IN M.R.#: [id number] Admission: 04/21/17 Attend Phys: Ezekiel Mobley MD Discharge: Date of : 53 Report #: [id number] metoclopramide 5 mg b.i.d., insulin on a sliding scale, atorvastatin 40 mg at bedtime. He is also on ceftriaxone. He is also on oseltamivir 75 mg b.i.d. and azithromycin 500 mg daily, but that may have been stopped. PHYSICAL EXAMINATION: GENERAL: The patient appears his stated age. VITAL SIGNS: Height is 6 feet 1, which is 185 cm; weight is 212 pounds, which is 92.3 kilograms. Blood pressure is 110/45, O2 sat 97, respirations 18, pulse 85, temperature 99.7. LUNGS: Have some soft rhonchi in the left more than the right. Oropharynx is clear. HEART: Appears mostly regular. ABDOMEN: Soft, slightly obese. No masses. EXTREMITIES: Without clubbing, cyanosis. LABORATORY DATA: Here includes BUN 30, creatinine of 1.7, glucose of 140, bilirubin 0.4, calcium 8.6, transaminases normal. Albumin 2.7. White count 7.1, hemoglobin 10.3, MCV 81, platelets 229. Differential, nonacute with slight neutrophilia. Respiratory viral by PCR is currently pending. Pulmonary trend showed an O2 sat of 97% on room air. ASSESSMENT AND PLAN: 1. Respiratory illness with sudden onset and high fever and myalgias, I agree with strong suspicion for influenza A or B, agree with Tamiflu, await PCR ____, continue supportive measures. The patient's already knows that and she will be contacting her primary care for consideration of prophylactic Tamiflu. 2. Pneumonitis, agree with current antibacterial antibiotics. 3. History of non-small cell lung cancer, has been responding to Opdivo immunotherapy. We will hold dose that, I believe, is planned for tomorrow. 4. Hypothyroid, continue replacement. 5. Hyperlipidemia, continue statins. 6. Type 1 diabetes, continue sliding scale insulin and appropriate monitoring. 7. Coronary artery disease and coronary heart issues, continue amiodarone and carvedilol, continue aspirin. 8. Neuropathy, continue pregabalin. 9. History of gastrointestinal bleed and gastrointestinal issues, continue metoclopramide and pantoprazole. We will follow with you. <ELECTRONICALLY SIGNED> By: Ishaan Petit MD 04/22/17 1155 0916 1057 Ishaan Petit MD /nt
--- NOTE | ~2017-04-21 | HC ---
[facility] [place] [address] CONSULTATION Name: MELANIE STONE Room #: 353-P ADM IN M.R.#: [id number] Admission: 04/21/17 Attend Phys: Ezekiel Mobley MD Discharge: Date of : 53 Report #: [id number] THIS REPORT FOR: //name// CC: Ishaan Mobley MD DATE OF SERVICE: 04/21/2017 REASON FOR CONSULTATION: Pneumonia and influenza. CHIEF COMPLAINT: Cough, fever. HISTORY OF PRESENT ILLNESS: Our group was asked to evaluate the patient in consultation while hospitalized at [facility], well known to me from prior workup of metastatic lung cancer and chronic right pleural effusion, felt to be secondary to atelectasis. 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 Had been in his usual state of health, states his lung cancer has been stable, recently is on Opdivo under the care of Dr. Petit. The patient notes had been ill a few days ago and then yesterday started having high fevers as high as 102, nonproductive cough and chills, had some nausea and vomiting earlier today, was able to tolerate some oatmeal later this afternoon, presented to his primary care provider who had a positive nasal swab for influenza, subsequently admitted for further management. Additional workup is pending. No laboratories or radiographs are available at this time. The patient appears comfortable on room air and conversant at the bedside. ALLERGIES: None known. PAST MEDICAL HISTORY: 1. Metastatic lung cancer as described. 2. Chronic right pleural effusion related to above. 3. History of diabetes mellitus type 1, states most recent hemoglobin A1c about 5.7. 4. History of coronary artery disease. 5. Chronic left hip pain due to treatment for metastatic lesion. 6. Hypertension. SOCIAL HISTORY: The patient is , currently is still working with remote history of tobacco use. No alcohol consumption. FAMILY HISTORY: Negative for any significant pulmonary disease. REVIEW OF SYSTEMS: [facility] [address] [address] CONSULTATION Name: MELANIE STONE Room #: 353-P [facility] IN M.R.#: [id number] Admission: 04/21/17 Attend Phys: Ezekiel Mobley MD Discharge: Date of : 53 Report #: [id number] CONSTITUTIONAL: Notes fever as described in HPI. Some chills. No rigors. ENT: No upper respiratory congestion, rhinorrhea or dysphagia. CARDIOVASCULAR: No chest pains or palpitations. GASTROINTESTINAL: Nausea and vomiting as described. No abdominal pain. No hematemesis, hematochezia, constipation or diarrhea. GENITOURINARY: No dysuria, no frequency. INTEGUMENT: Denies any rash. MUSCULOSKELETAL: Some chronic pain, particularly in the left hip. PHYSICAL EXAMINATION: VITAL SIGNS: Temperature 37.3, pulse 60s, respiratory rate 16, blood pressure 115/45, oxygen saturation 92% on room air. GENERAL: This is a pleasant middle-aged male, does not appear distressed, appears comfortable, somewhat diaphoretic. HEENT: Clear oropharynx. NECK: Supple, no lymphadenopathy. LUNGS: Markedly diminished in the right base with bronchial breath sounds, some left-sided basilar crackles on inspiration, expiratory wheeze. CARDIOVASCULAR: Heart was regular, 2/6 systolic murmur noted. ABDOMEN: Soft, nontender. No masses, no hepatosplenomegaly. EXTREMITIES: Revealed 1+ chronic appearing venous stasis and edema. LABORATORY DATA: All pending at this time. IMPRESSION: 1. Probable influenza A. 2. Probable pneumonia, influenza and/or additional post-influenza infections. 3. Diabetes mellitus type 2. 4. Metastatic lung cancer. 5. Chronic pleural effusion. 6. History of coronary artery disease. SUGGESTIONS: 1. Await chest radiograph. 2. Coverage for possible Staph and other post-influenza infections. 3. Tamiflu. 4. Aerosol treatments. 5. Sputum and blood cultures. 6. Nasal swab for respiratory viral panel. 7. Additional recommendations to follow. Thank you for requesting our suggestions. <ELECTRONICALLY SIGNED> By: Michoacano Harden MD 04/22/17 1818 1815 0230 Michoacano Harden MD /nt
[2017-04-21 17:20] VITALS: BP 115/45
[2017-04-21] MEDS ORDERED: COLACE100 MG PO (17:35)
[2017-04-21] MEDS ORDERED: REGLAN 10 MG TA10 MG PO (17:38)
[2017-04-21] MEDS ORDERED: SYNTHROID25 MCG PO (17:41)
[2017-04-21] MEDS ORDERED: ATORVASTATIN CA40 MG PO (17:42)
[2017-04-21 18:49] LABS: HEMATOCRIT 32.2 % (42.0-52.0); HEMOGLOBIN 10.3 gm/dL (14.0-18.0); MCH 25.9 pg (26.0-34.0); PLATELET COUNT 229 thou/uL (150-400); RBC 3.97 mil/uL (4.50-6.00); RDW 18.7 % (10.5-14.5); WBC 7.1 thou/uL (4.0-11.0)
[2017-04-21 19:04] LABS: ALBUMIN 2.7 g/dL (3.4-5.0); CALCIUM 8.6 mg/dL (8.5-10.1); CREATININE 1.7 mg/dL (0.7-1.3); POTASSIUM 3.9 mmol/L (3.5-5.1); TOTAL BILIRUBIN 0.4 mg/dL (<0.1-1.0); TOTAL PROTEIN 7.4 g/dL (6.4-8.2)
[2017-04-21 19:12] LABS: ABSOLUTE NEUTROPHILS 5.9 thou/uL (1.4-8.2)
[2017-04-21 20:00] VITALS: BP 118/48
[2017-04-22 04:10] VITALS: BP 122/49
[2017-04-22 08:48] VITALS: BP 110/45
[2017-04-22 17:18] VITALS: BP 146/565
[2017-04-22 20:20] VITALS: BP 112/46
[2017-04-22 23:45] VITALS: BP 104/52
[2017-04-23 04:35] VITALS: BP 115/52
[2017-04-23 06:54] LABS: HEMATOCRIT 30.4 % (42.0-52.0); HEMOGLOBIN 9.8 gm/dL (14.0-18.0); MCH 26.2 pg (26.0-34.0); MCHC 32.3 g/dL (28.0-37.0); MCV 81.1 fL (80.0-100.0); RBC 3.75 mil/uL (4.50-6.00); RDW 18.3 % (10.5-14.5); WBC 6.6 thou/uL (4.0-11.0)
[2017-04-23 07:07] LABS: ALBUMIN 2.4 g/dL (3.4-5.0); CALCIUM 8.4 mg/dL (8.5-10.1); CREATININE 1.4 mg/dL (0.7-1.3); POTASSIUM 3.6 mmol/L (3.5-5.1); TOTAL BILIRUBIN 0.3 mg/dL (<0.1-1.0); TOTAL PROTEIN 6.9 g/dL (6.4-8.2)
[2017-04-23 08:13] VITALS: BP 122/53
[2017-04-23 18:04] VITALS: BP 106/73
[2017-04-23 20:36] VITALS: BP 106/63
[2017-04-24 03:38] VITALS: BP 140/53
[2017-04-24 07:40] VITALS: BP 129/42
[2017-04-24 16:09] VITALS: BP 123/47
[2017-04-24] MEDS ORDERED: AZITHROMYCIN 2250 MG PO (18:01)
[2017-04-24] MEDS ORDERED: OSELB75 PO (18:01)
[2017-04-24] MEDS ORDERED: HYDROCHLOROTH12.5 M1 PO (18:01)
[2017-04-24] MEDS ORDERED: PROMETHAZINE/C118 ML PO (18:01)
[2017-04-24] MEDS ORDERED: CEFDINIR300 MG PO (18:14)
[2017-04-24 18:18] VITALS: BP 123/47
[2017-04-28 01:06] LABS: ADENOVIRUS Negative (Negative); INFLUENZA A Positive (Negative); INFLUENZA B Negative (Negative); METAPNEUMOVIRUS Negative (Negative); PARAINFLUENZA 1 Negative (Negative); PARAINFLUENZA 2 Negative (Negative); PARAINFLUENZA 3 Negative (Negative); RHINOVIRUS Negative (Negative); RSV A Negative (Negative); RSV B Negative (Negative)
[2017-04-28 09:17] LABS: BE(vivo) -2.3 mmol/L (-2 to +3); PCO2 48.7 mmHg (35.0-45.0); sO2 95.7 % (92.0-98.0)
[2017-12-02] MEDS ORDERED: SYNTHROID150 MCG PO (16:35)
[2017-12-02] MEDS ORDERED: LISINOPRIL5 MG PO (16:36)
[2017-12-02] MEDS ORDERED: CARVEDILOL3.125 MG PO (16:38)
[2017-12-02] MEDS ORDERED: ESZOPICLONE2 MG PO (16:38)
[2017-12-02] MEDS ORDERED: FLOMAX0.4 MG PO (16:40)
[2017-12-02] MEDS ORDERED: LEVAQUIN 500 M500 M2 PO ×2 (17:48→17:56)
[2017-12-02] MEDS ORDERED: UNICOMPLEX M TA1 TA1 PO (17:50)
[2017-12-02] MEDS ORDERED: VITAMINC500 PO (17:52)
[2017-12-02] MEDS ORDERED: HUMALOG100 UNIT/1 SUBQ (17:53)
[2017-12-04] MEDS ORDERED: PROMETHAZINE-C473 ML PO (16:36)
[2017-12-04] MEDS ORDERED: AMOXICILLIN-CL1 EACH PO (16:36)
[2017-12-04] MEDS ORDERED: LYRICA100 MG PO (16:36)
[2017-12-04] MEDS ORDERED: HYDROCHLOROTH12.5 M1 PO (16:46)
[2017-12-04] MEDS ORDERED: COREG6.25 MG PO (16:46)
[2017-12-04] MEDS ORDERED: ESZOPICLONE1 MG PO (16:46)
== END 2017-04-24 19:01 | disposition home or self-care (01) | DRG 194 ==
LOC: 3W 16:27 → ENTRNSPT 04-24 18:41 → 3W 04-24 19:01
PROVIDERS: Internal Medicine; Internal Medicine Pulmonary Disease
DX: J10.00 Influenza due to other identified influenza virus with unspecified type of pneumonia (principal); J90 Pleural effusion, not elsewhere classified; C34.90 Malignant neoplasm of unspecified part of unspecified bronchus or lung; I25.10 Atherosclerotic heart disease of native coronary artery without angina pectoris; G89.29 Other chronic pain; I10 Essential (primary) hypertension; E03.9 Hypothyroidism, unspecified; E78.5 Hyperlipidemia, unspecified; E10.40 Type 1 diabetes mellitus with diabetic neuropathy, unspecified; G47.33 Obstructive sleep apnea (adult) (pediatric); E86.0 Dehydration; Z87.891 Personal history of nicotine dependence
CPT/HCPCS: 10879

== ENCOUNTER → 2017-05-11 | Outpatient (CLI) | payer BC, OTHER ==
[~2017-05-11] MED LIST changes: +AMOXICILLIN-CL1 EACH PO; +ATORVASTATIN CA40 MG PO; +AZITHROMYCIN 2250 MG PO; +CARVEDILOL3.125 MG PO; +CEFDINIR300 MG PO; +ESZOPICLONE1 MG PO; +ESZOPICLONE2 MG PO; +FLOMAX0.4 MG PO; +HUMALOG100 UNIT/1 SUBQ; +LISINOPRIL5 MG PO; +LYRICA100 MG PO; +OSELB75 PO; +PROMETHAZINE-C473 ML PO; +PROMETHAZINE/C118 ML PO; +REGLAN 10 MG TA10 MG PO; +SYNTHROID150 MCG PO; +SYNTHROID25 MCG PO; +UNICOMPLEX M TA1 TA1 PO; +VITAMINC500 PO
--- NOTE | ~2017-05-11 | 2DMMODE ---
[facility] [address] [place] [address] 2 D/M-MODE ECHOCARDIOGRAM Name: BERTHAMELANIE ZHOU Room #: REG [facility]#: [id number] Admission: 05/11/17 Attend Phys: Murary Sanchez Discharge: Date of : 53 Date of Service: 05/11/17 1630 Report #: [id number] THIS REPORT FOR: //name// APPROVED REPORT Study performed: 05/11/2017 15:00:25 EXAM: Comprehensive 2D, Doppler, and color-flow Echocardiogram Patient Location: Out-Patient Status: routine BSA: 2.16 HR: 66 bpm BP: 139/90 mmHg Rhythm: NSR Other Information Study Quality: Adequate/technically difficult due to lung artifact. Indications Atrial tachycardia. Hx: CABG, PVD 2D Dimensions RVDd: 38.58 mm LVEF(%): 42.44 (>50%) IVSd: 9.90 (7-11mm) LVOT Diam: 21.68 (18-24mm) LVDd: 52.42 mm PWd: 10.73 (7-11mm) Ascending Ao: 32.34 (22-36mm) LVDs: 41.40 (25-40mm) Aortic Root: 30.04 mm Miller's LVEF: 42.44 % Volumes Left Atrial Volume (Systole) Single Plane 4CH: 40.50 mL Single Plane 2CH: 59.91 mL LA ESV Index: 24.00 mL/m2 Aortic Valve AoV Peak Andreas.: 2.15 m/s AO Peak Gr.: 18.52 mmHg LVOT Max P.17 mmHg AO Mean Gr.: 11.74 mmHg AO V2 Mean: 1.65 m/s LVOT Max V: 0.89 m/s AO V2 VTI: 57.85 cm JORDAN Vmax: 1.53 cm2 [facility] [place] [address] 2 D/M-MODE ECHOCARDIOGRAM Name: MELANIE STONE Room #: REG [facility]#: [id number] Admission: 05/11/17 Attend Phys: [facility] Discharge: Date of : 53 Date of Service: 05/11/17 1630 Report #: [id number] Mitral Valve E/A Ratio: 0.8 MV Decel. Time: 252.22 ms MV E Max Andreas.: 0.82 m/s MV A Andreas.: 0.97 m/s MV PHT: 73.14 ms IVRT: 96.89 ms Pulmonary Valve PV Peak Andreas.: 1.01 m/s PV Peak Gr.: 4.12 mmHg Tricuspid Valve TR Peak Andreas.: 1.96 m/s RAP Estimate: 5.00 mmHg TR Peak Gr.: 15.31 mmHg PA Pressure: 20.00 mmHg Left Ventricle The left ventricle is normal size. There is normal left ventricular wall thickness. Left ventricular systolic function is mild to moderately decreased globally. LVEF is 40%. Mild diastolic dysfunction is present (impaired relaxation pattern). Right Ventricle Right ventricle is grossly normal in size. Right ventricle is dilated. Right ventricle is borderline dilated. Right ventricle is dilated. Right ventricle is hypokinetic. Atria The left atrium size is normal. The right atrium size is normal. Aortic Valve The aortic valve is not well visualized but appears calcified. Mild aortic regurgitation. Mild aortic stenosis. Mitral Valve Mitral valve leaflets are mildly thickened. Mild to moderate mitral regurgitation. Tricuspid Valve The tricuspid valve is normal in structure. Trace to mild tricuspid regurgitation. Estimated PAP is 20-25mmHg. Pulmonic Valve The pulmonary valve is normal in structure. There is no pulmonic valvular stenosis. Trace pulmonic regurgitation. [facility] [address] [place] [address] 2 D/M-MODE ECHOCARDIOGRAM Name: MELANIE STONE Room #: REG CL Liang#: [id number] Admission: 05/11/17 Attend Phys: Murray Sanchez Discharge: Date of : 53 Date of Service: 05/11/17 1630 Report #: [id number] Great Vessels The aortic root is normal in size. Pericardium No pericardial effusion. <Conclusion> The left ventricle is normal size. Left ventricular systolic function is mild to moderately decreased globally. LVEF is 40%. Right ventricle is grossly normal in size. Right ventricle is dilated. Right ventricle is borderline dilated. Right ventricle is dilated. Right ventricle is hypokinetic. The aortic valve is not well visualized but appears calcified. Mild aortic regurgitation. Mild aortic stenosis. Mitral valve leaflets are mildly thickened. Mild to moderate mitral regurgitation. The tricuspid valve is normal in structure. Trace to mild tricuspid regurgitation. Estimated PAP is 20-25mmHg. The pulmonary valve is normal in structure. Trace pulmonic regurgitation. No pericardial effusion. <ELECTRONICALLY SIGNED> By: Jewel Salazar MD 05/11/17 1630 163 [id number] Jewel Salazar MD /INF
== END ==
LOC: CV 07:39
DX: I08.3 Combined rheumatic disorders of mitral, aortic and tricuspid valves (principal); I73.9 Peripheral vascular disease, unspecified; Z95.1 Presence of aortocoronary bypass graft

== ENCOUNTER → 2017-05-25 | Outpatient (CLI) | payer BC, OTHER | LOC: NUC 07:09 | DX: I48.91 Unspecified atrial fibrillation (principal); I47.1 Supraventricular tachycardia; E78.5 Hyperlipidemia, unspecified; E11.9 Type 2 diabetes mellitus without complications; Z87.891 Personal history of nicotine dependence ==

== ENCOUNTER → 2017-10-26 | Outpatient (CLI) | payer BC, OTHER ==
[~2017-10-26] MED LIST changes: -AMOXICILLIN-CL1 EACH PO; -CARVEDILOL3.125 MG PO; -ESZOPICLONE1 MG PO; -ESZOPICLONE2 MG PO; -FLOMAX0.4 MG PO; -HUMALOG100 UNIT/1 SUBQ; -LISINOPRIL5 MG PO; -LYRICA100 MG PO; -PROMETHAZINE-C473 ML PO; -SYNTHROID150 MCG PO; -UNICOMPLEX M TA1 TA1 PO; -VITAMINC500 PO
== END ==
LOC: CAT 13:21
DX: C34.31 Malignant neoplasm of lower lobe, right bronchus or lung (principal); I67.82 Cerebral ischemia; J98.11 Atelectasis; J90 Pleural effusion, not elsewhere classified; I70.0 Atherosclerosis of aorta

== ENCOUNTER 2017-12-22 14:40 | Emergency (ER) | payer BC, OTHER ==
[~2017-12-22] VITALS: Ht 185.4 cm; Wt 91.2 kg
--- NOTE | ~2017-12-22 | EKG ---
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 <ELECTRONICALLY SIGNED> By: Murray Sanchez MD 12/23/17 1328 1538 1538 Murray Sanchez MD /EPI
[~2017-12-22 14:40] MED LIST changes: +AMOXICILLIN-CL1 EACH PO; +CARVEDILOL3.125 MG PO; +ESZOPICLONE1 MG PO; +ESZOPICLONE2 MG PO; +FLOMAX0.4 MG PO; +HUMALOG100 UNIT/1 SUBQ; +LISINOPRIL5 MG PO; +LYRICA100 MG PO; +PROMETHAZINE-C473 ML PO; +SYNTHROID150 MCG PO; +UNICOMPLEX M TA1 TA1 PO; +VITAMINC500 PO
[2017-12-22 16:28] LABS: HEMATOCRIT 24.4 % (42.0-52.0); HEMOGLOBIN 7.5 gm/dL (14.0-18.0); MCH 25.2 pg (26.0-34.0); MCHC 30.6 g/dL (28.0-37.0); MCV 82.3 fL (80.0-100.0); PLATELET COUNT 304 thou/uL (150-400); RBC 2.96 mil/uL (4.50-6.00); RDW 19.7 % (10.5-14.5); WBC 24.4 thou/uL (4.0-11.0)
[2017-12-22 16:35] LABS: ANION GAP 7 mmol/L (7-16); BUN 28 mg/dL (7-18); CALCIUM 8.5 mg/dL (8.5-10.1); CHLORIDE 104 mmol/L (98-107); CO2 24 mmol/L (21-32); CREATININE 2.1 mg/dL (0.7-1.3); GLUCOSE 189 mg/dL (74-106); POTASSIUM 4.2 mmol/L (3.5-5.1); SODIUM 135 mmol/L (136-145)
[2017-12-22 16:44] LABS: TROPONIN-I <0.06 ng/mL (<0.06)
[2017-12-22 17:02] LABS: PLATELET ESTIMATE NORMAL
[2017-12-22 17:03] LABS: POLYCHROMASIA 1+
[2017-12-22 17:04] LABS: ANISOCYTOSIS 2+; HYPOCHROMASIA SLIGHT
== END 2017-12-22 19:29 | disposition home or self-care (01) ==
LOC: ER 14:40
PROVIDERS: Emergency Medicine
DX: R53.1 Weakness (principal); R39.11 Hesitancy of micturition; E11.9 Type 2 diabetes mellitus without complications; I10 Essential (primary) hypertension; Z85.118 Personal history of other malignant neoplasm of bronchus and lung; Z79.4 Long term (current) use of insulin

== ENCOUNTER → 2017-12-24 | Outpatient (CLI) | payer BC, OTHER ==
[2017-12-24 10:28] VITALS: BP 103/41; BP 105/63
[2017-12-24 12:50] VITALS: BP 105/63; BP 107/57; BP 114/45
== END ==
LOC: OPONC 00:26
DX: C34.31 Malignant neoplasm of lower lobe, right bronchus or lung (principal); D50.0 Iron deficiency anemia secondary to blood loss (chronic)
CPT/HCPCS: 91030

== ENCOUNTER → 2018-01-01 | Outpatient (CLI) | payer BC, OTHER | LOC: MRI | DX: M47.896 Other spondylosis, lumbar region (principal); G96.19 Other disorders of meninges, not elsewhere classified; J90 Pleural effusion, not elsewhere classified; M62.81 Muscle weakness (generalized); Z85.118 Personal history of other malignant neoplasm of bronchus and lung; E11.9 Type 2 diabetes mellitus without complications ==

== ENCOUNTER → 2018-02-12 | Outpatient (CLI) | payer BC, OTHER ==
[~2018-02-12] MED LIST changes: +LEVOXYL175 MCG PO
== END ==
LOC: OPONC 07:09
DX: N18.3 Chronic kidney disease, stage 3 (moderate) (principal); D63.1 Anemia in chronic kidney disease; C34.31 Malignant neoplasm of lower lobe, right bronchus or lung; I25.10 Atherosclerotic heart disease of native coronary artery without angina pectoris

== ENCOUNTER → 2018-03-18 | Outpatient (CLI) | payer BC, OTHER | LOC: CAT 09:53 | DX: C34.90 Malignant neoplasm of unspecified part of unspecified bronchus or lung (principal); J47.9 Bronchiectasis, uncomplicated; J98.4 Other disorders of lung; J90 Pleural effusion, not elsewhere classified; J98.11 Atelectasis ==

== ENCOUNTER → 2018-06-03 | Outpatient (CLI) | payer BC, OTHER ==
[2018-06-03 13:03] VITALS: BP 84/46; BP 86/42
[2018-06-03 15:26] VITALS: BP 111/44; BP 86/42; BP 94/40
--- NOTE | 2018-06-03 17:48 | NUR ---
IN FOR BLOOD TRANSFUSION 2 UNITS FOR HGB 8, WITH HYPOTENSION AND SEVERE FATIGUE AND DIZZINESS. TRANSFUSED 2 UNITS LPPC'S AND TOLERATED WELL WITH NO S/SX'S OF TRANSFUSION REACTION NOTED. REMOVED IV AND DISMISSED IN STABLE CONDITION.
== END ==
LOC: OPONC 10:58
DX: C34.31 Malignant neoplasm of lower lobe, right bronchus or lung (principal); I95.89 Other hypotension; E86.1 Hypovolemia
CPT/HCPCS: 91030

== ENCOUNTER → 2018-06-08 | Outpatient (CLI) | payer BC, OTHER | LOC: CAT 09:02 | DX: C34.31 Malignant neoplasm of lower lobe, right bronchus or lung (principal); K80.80 Other cholelithiasis without obstruction; R19.5 Other fecal abnormalities; R16.0 Hepatomegaly, not elsewhere classified ==